=== PATIENT | male | born 2000 | race Caucasian/White ===

== ENCOUNTER 2022-12-12 18:13 | Emergency (ER) | payer OTHER ==
[2022-12-12] MEDS ORDERED: Acetaminophen/oxyCODONE 325-5 MG Tab PO ONE (18:14)
[2022-12-12] MEDS ORDERED: Sodium Chloride 0.9% 10 ML Syringe FLUSH PRN (18:20)
[2022-12-12] MEDS ORDERED: Diphtheria,Pertussis(Acell),Tetanus Vaccine 0.5 ML Syringe IM ONE (18:33)
[2022-12-12] MEDS ORDERED: HYDROmorphone 1 MG/ML Syringe IVPUSH ONE (18:54)
[2022-12-12] MEDS ORDERED: Midazolam 1 MG/ML 2 ML SDV IVPUSH ONE (18:57)
[2022-12-12] MEDS ORDERED: Sulfamethoxazole/Trimethoprim 800-160 MG Tab PO ONE (19:36)
[2022-12-12] MEDS ORDERED: Cephalexin 500 MG Cap PO ONE (19:36)
[2022-12-12] MEDS ORDERED: Acetaminophen/oxyCODONE 325-5 MG Tab ONE (19:59)
== END 2022-12-12 20:07 | disposition home or self-care (01) ==
LOC: DL.ED 18:13
DX: S60.851A Superficial foreign body of right wrist, initial encounter (principal); Z23 Encounter for immunization; W45.0XXA Nail entering through skin, initial encounter
CPT/HCPCS: 20520; 73100; 90471; 90715; 96374; 96375; 99283; A9270; J1170; J2250; J3490